=== PATIENT | female | born 1975 | race Caucasian/White ===

== ENCOUNTER 2017-06-09 16:57 | Emergency (ER) | payer OTHER ==
[~2017-06-09] VITALS: Ht 170.2 cm; Wt 71.8 kg
[2017-06-09 18:43] VITALS: BP 121/70
== END 2017-06-09 18:44 | disposition home or self-care (01) ==
LOC: EME 16:57
DX: M54.5 Low back pain (principal); V49.40XA Driver injured in collision with unspecified motor vehicles in traffic accident, initial encounter
CPT/HCPCS: 99281; 99283